=== PATIENT | male | born 2000 | race American Indian/Alaskan Native ===

== ENCOUNTER 2021-11-18 04:19 | Emergency (ER) | payer SELFPAY | END 2021-11-18 05:09 | disposition left against medical advice (07) | LOC: ED 04:19 | DX: M54.9 Dorsalgia, unspecified (principal); Z53.21 Procedure and treatment not carried out due to patient leaving prior to being seen by health care provider; V89.2XXA Person injured in unspecified motor-vehicle accident, traffic, initial encounter; Y93.89 Activity, other specified; Y92.89 Other specified places as the place of occurrence of the external cause; Y99.8 Other external cause status ==

== ENCOUNTER 2021-11-19 22:26 | Emergency (ER) | payer SELFPAY ==
[2021-11-19 22:36] VITALS: BP 129/91
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
[2021-11-20] MEDS ORDERED: ACETAMINOPHEN 500 MG TAB PO ONE (02:17)
[2021-11-20] MEDS ORDERED: IBUPROFEN 600 MG TAB PO ONE (02:17)
== END 2021-11-20 02:47 | disposition home or self-care (01) ==
LOC: ED 22:26
DX: S13.9XXA Sprain of joints and ligaments of unspecified parts of neck, initial encounter (principal); M62.830 Muscle spasm of back; Z79.899 Other long term (current) drug therapy; V89.2XXA Person injured in unspecified motor-vehicle accident, traffic, initial encounter; Y93.89 Activity, other specified; Y92.488 Other paved roadways as the place of occurrence of the external cause; Y99.8 Other external cause status
CPT/HCPCS: 72040; 72100; 99283